=== PATIENT | female | born 1985 | race Two or more races ===

== ENCOUNTER 2025-09-05 17:00 | Emergency (ER) | payer OTHER ==
[~2025-09-05] VITALS: Ht 165.1 cm; Wt 72.6 kg
[2025-09-05] MEDS ORDERED: ACETAMINOPHEN 500 MG GEL..CAP PO ONE ×2 (18:45→22:34)
[2025-09-05] MEDS ORDERED: CETIRIZINE HCL 10 MG TABLET PO ONE (18:45)
[2025-09-05] MEDS ORDERED: METHYLPREDNISOLONE SOD SUCC 125 MG VIAL IV ONE (18:45)
[2025-09-05] MEDS ORDERED: METHYLPREDNISOLONE SOD SUCC 125 MG VIAL ONE (22:35)
[2025-09-05] MEDS ORDERED: CETIRIZINE HCL 5MG/5ML BLIST.PACK PO ONE (22:35)
[2025-09-05 23:38] LABS: BASO % 0.1 % (0.1-1.2); EOS # 0.08 (0.04-0.54); EOS % 0.9 % (0.7-7.0); LYMPH # 2.70 (1.18-3.74); LYMPH % 30.8 % (19.3-53.1); MEAN PLATELET VOLUME 10.90 fl (9.4-12.4); MONO # 0.67 (0.24-0.82); MONO % 7.6 % (4.7-12.5); NEUT # 5.29 (1.56-6.13); NEUT % 60.3 % (34.0-71.1); RED CELL DISTRIBUTION WIDTH 12.0 % (11.6-14.4)
[2025-09-05 23:46] LABS: COVID-19 AG NEGATIVE (NEGATIVE)
[2025-09-06] MEDS ORDERED: AMOX1TAB5 PO (00:27)
[2025-09-06] MEDS ORDERED: FLONASE16 GM NASAL (00:27)
[2025-09-06] MEDS ORDERED: SINGULAIR10 MG PO (00:27)
[2025-09-06] MEDS ORDERED: ZYRTEC10 MG PO (00:27)
== END 2025-09-06 03:02 | disposition home or self-care (01) ==
LOC: ER 17:01
PROVIDERS: General Practice
DX: J32.0 Chronic maxillary sinusitis (principal); J06.9 Acute upper respiratory infection, unspecified; Z20.822 Contact with and (suspected) exposure to COVID-19